=== PATIENT | male | born 1990 | race American Indian/Alaskan Native ===

== ENCOUNTER 2020-01-22 18:19 | Emergency (ER) | payer OTHER ==
--- NOTE | 2020-01-22 19:22 | CR ---
PROCEDURE INFORMATION: Exam: XR Left Shoulder Exam date and time: 01/22/2020 7:04 PM Age: 29 years old Clinical indication: Pain; Shoulder; Left; Additional info: Pain with movement TECHNIQUE: Imaging protocol: XR Left shoulder. Views: 2 or more views. COMPARISON: No relevant prior studies available. FINDINGS: Bones/joints: The distal left clavicle is slightly high riding with respect to the acromion. Glenohumeral joint is intact. No fracture or other acute process. Soft tissues: Normal. IMPRESSION: 1. The distal clavicle is very slightly high riding with respect to the acromion. Correlate clinically for any evidence of underlying AC joint subluxation/injury. 2. No fracture. 3. Glenohumeral joint is intact.
--- NOTE | 2020-01-22 19:46 | EDM.PDOC ---
ED HPI GENERAL MEDICAL PROBLEM - General Chief Complaint: Upper Extremity Injury/Pain Stated Complaint: LEFT SHOULDER, HURT 3 DAYS AGO. PAIN Time Seen by Provider: 01/22/20 19:30 Source of Information: Reports: Patient History Limitations: Reports: No Limitations - History of Present Illness INITIAL COMMENTS - FREE TEXT/NARRATIVE: ED with c/o pain to left shoulder, denies acute injury. Injury 10 years ago. Currently working at [employer], repetitive type work . Increasing pain past 3-4 days. No PCP in area. Last PCP in [place]. Has not tried anything for pain control. Similar episode acouple years ago and had shoulder sling. - Related Data Allergies Allergy/AdvReac Type Severity Reaction Status Date / Time diphenhydramine Allergy Swelling Verified 01/22/20 18:55 [From Benadryl] Home Meds: Home Meds . [No Known Home Meds] 01/22/20 [History] Past Medical History Musculoskeletal History: Reports: Fracture Other Musculoskeletal History: left rotator cuff tear treated with sling Social & Family History - Tobacco Use Tobacco Use Status *Q: Current Every Day Tobacco User Years of Tobacco use: 13 Packs/Tins Daily: 0.4 Second Hand Smoke Exposure: Yes - Recreational Drug Use Recreational Drug Use: No Review of Systems - Review of Systems Review Of Systems: Comprehensive ROS is negative, except as noted in HPI. ED EXAM, GENERAL - Physical Exam Exam: See Below Exam Limited By: No Limitations General Appearance: Alert, Mild Distress Eye Exam: Bilateral Eye: EOMI Ears: Normal External Exam Nose: Normal Inspection Throat/Mouth: Normal Inspection Head: Atraumatic, Normocephalic Neck: Normal Inspection Respiratory/Chest: No Respiratory Distress, Lungs Clear, Normal Breath Sounds Cardiovascular: Normal Peripheral Pulses, Regular Rate, Rhythm GI/Abdominal: Normal Bowel Sounds, Soft Extremities: No: Normal Range of Motion (lmited upwarsd and external rotation of left shoulder.) Neurological: Alert, Oriented, Normal Cognition Psychiatric: Normal Affect Skin Exam: Warm, Dry, Intact, Normal Color Course - Vital Signs Last Recorded V/S: Last Vital Signs Temp 98.3 F 01/22/20 18:50 Pulse 76 01/22/20 18:50 Resp 18 01/22/20 18:50 BP 112/67 01/22/20 18:50 Pulse Ox 95 01/22/20 18:50 - Re-Assessments/Exams Free Text/Narrative Re-Assessment/Exam: 01/22/20 19:56 Instructed need to find PCP, will need physical therapy and possible ortho referral. Off work x 2 days to arrange appointments . Limited upward movments, utizize ice and alternate tylenol and ibuprofen for discomfort. Departure - Departure Time of Disposition: 19:46 Disposition: Home, Self-Care 01 Condition: Good Clinical Impression: Left shoulder pain Qualifiers: Chronicity: unspecified Qualified Code(s): M25.512 - Pain in left shoulder - Discharge Information Instructions: Shoulder Pain, [id number] Forms: ED Department Discharge, ED Return to Work/School Form Additional Instructions: Follow up primary care this week shoulder immobilizer alternate tylenol 650mg and iburofen 600mg every 4 hours as needed for discomfort ice to shoulder to decrease inflammation Sepsis Event Note (ED) - Evaluation Sepsis Screening Result: No Definite Risk - Focused Exam Vital Signs: Vital Signs Temp Pulse Resp BP Pulse Ox 01/22/20 18:50 98.3 F 76 18 112/67 95
== END 2020-01-22 19:55 | disposition home or self-care (01) ==
LOC: DL.ED 18:19
DX: M25.512 Pain in left shoulder (principal); F17.210 Nicotine dependence, cigarettes, uncomplicated; Z88.8 Allergy status to other drugs, medicaments and biological substances
CPT/HCPCS: 73030-LT; 99283

== ENCOUNTER 2023-07-16 02:38 | Emergency (ER) | payer SELFPAY | END 2023-07-16 03:21 | disposition home or self-care (01) | LOC: DL.ED 02:38 | DX: L03.011 Cellulitis of right finger (principal); F17.210 Nicotine dependence, cigarettes, uncomplicated; Z86.16 Personal history of COVID-19; Z88.8 Allergy status to other drugs, medicaments and biological substances | CPT/HCPCS: 10060; 99283; 99283-25 ==

== ENCOUNTER 2024-02-05 15:10 | Emergency (ER) | payer SELFPAY ==
[2024-02-05] MEDS: Ondansetron 4 MG Tab.DIS PO ONE (15:39)
[2024-02-05] MEDS: Take Home: Ondansetron 4 MG Tab.DIS, 5 Tab Pack PO ONE (15:59)
== END 2024-02-05 16:07 | disposition home or self-care (01) ==
LOC: DL.ED 15:10
DX: R11.2 Nausea with vomiting, unspecified (principal); F17.210 Nicotine dependence, cigarettes, uncomplicated; Z88.8 Allergy status to other drugs, medicaments and biological substances
CPT/HCPCS: 82947; 87428; 99284; A9270; Q0162; 99283

== ENCOUNTER 2024-02-06 02:37 | Emergency (ER) | payer SELFPAY ==
[2024-02-06] MEDS ORDERED: Sodium Chloride 0.9% 10 ML Syringe FLUSH PRN (02:47)
[2024-02-06 02:57] LABS: BASOPHILS PERCENT AUTO 0.2 % (0.0-1.0); EOSINOPHILS PERCENT AUTO 1.8 % (1.0-3.0); HEMATOCRIT 45.3 % (40.0-54.0); HEMOGLOBIN 15.9 g/dL (14.0-18.0); LYMPHOCYTES PERCENT AUTO 35.5 % (20.5-50.1); MEAN CORPUSCULAR HEMOGLOBIN 31.1 pg (27.0-34.0); MEAN CORPUSCULAR HGB CONC 35.1 g/dL (33.0-35.0); MEAN CORPUSCULAR VOLUME 88.6 fL (80-100); NEUTROPHILS PERCENT AUTO 55.5 % (42.2-75.2); PLATELET COUNT,PLT 200 10^3/uL (150-450); RED BLOOD CELL COUNT 5.11 10^6/uL (4.6-6.2); WHITE BLOOD CELL COUNT,WBC 8.5 10^3/uL (5.0-10.0)
[2024-02-06] MEDS: Lidocaine 1% 5 ML VIAL INJECT ONE (03:22)
[2024-02-06 03:37] LABS: A/G RATIO 1.1; ANION GAP 11.8 mEq/L (7-13); BILIRUBIN TOTAL 0.3 mg/dL (0.2-1.0); BUN/CREATININE RATIO 7.8 (No establ ref range); CALCIUM 8.9 mg/dL (8.5-10.1); CREATININE 1.16 mg/dL (0.70-1.30); EST CRCL DRUG DOSING (CG) 98.49 mL/min; MAGNESIUM 2.1 mg/dL (1.8-2.4); POTASSIUM,K 3.8 mmol/L (3.5-5.1); PROTEIN TOTAL,TP 7.5 g/dL (6.4-8.2)
[2024-02-06] MEDS: Bacitracin Oint 1 GM U/D Packet TOP ONE (03:54)
[2024-02-06] MEDS: Take Home: Amoxicillin/Clavulanate K 875-125 MG Tab, 6 Tab Pack PO ONE (04:12)
[2024-02-06] MEDS: Amoxicillin/Clavulanate K 875-125 MG Tab PO ONE (04:12)
== END 2024-02-06 04:17 | disposition home or self-care (01) ==
LOC: DL.ED 02:37
DX: S01.511A Laceration without foreign body of lip, initial encounter (principal); S09.90XA Unspecified injury of head, initial encounter; Z88.8 Allergy status to other drugs, medicaments and biological substances; Y04.2XXA Assault by strike against or bumped into by another person, initial encounter
CPT/HCPCS: 36415; 80053; 83735; 85025; 99282; 99284; A9270-GY; J3490

== ENCOUNTER 2024-02-13 15:29 | Emergency (ER) | payer SELFPAY | END 2024-02-13 16:00 | disposition home or self-care (01) | LOC: DL.ED 15:29 | DX: S01.511D Laceration without foreign body of lip, subsequent encounter (principal); Z48.02 Encounter for removal of sutures; Y04.8XXD Assault by other bodily force, subsequent encounter | CPT/HCPCS: 99281 ==

== ENCOUNTER 2024-02-25 15:49 | Emergency (ER) | payer SELFPAY | END 2024-02-25 17:16 | disposition home or self-care (01) | LOC: DL.ED 15:49 | DX: S82.62XA Displaced fracture of lateral malleolus of left fibula, initial encounter for closed fracture (principal); Z88.8 Allergy status to other drugs, medicaments and biological substances; W00.0XXA Fall on same level due to ice and snow, initial encounter | CPT/HCPCS: 29515; 73610-LT; 99283; 99283-25 ==

== ENCOUNTER 2024-03-25 04:58 | Emergency (ER) | payer SELFPAY | END 2024-03-25 05:58 | disposition left against medical advice (07) | LOC: DL.ED 04:58 | DX: Z47.89 Encounter for other orthopedic aftercare (principal); S82.832S Other fracture of upper and lower end of left fibula, sequela; F17.210 Nicotine dependence, cigarettes, uncomplicated; Z88.8 Allergy status to other drugs, medicaments and biological substances | CPT/HCPCS: 73610-LT; 99283 ==